=== PATIENT | male | born 1990 | race Two or more races ===

== ENCOUNTER 2017-07-16 19:19 | Emergency (ER) | payer MEDICAID, OTHER ==
[~2017-07-16] VITALS: Ht 172.7 cm; Wt 70.3 kg
[2017-07-16 20:15] LABS: Urine Bacteria NONE SEEN /hpf (None Seen); Urine Blood Negative /uL (Negative); Urine Specific Gravity 1.003 (1.001-1.035); Urine WBC 1 /hpf (0 - 3)
[2017-07-16 20:17] LABS: Basophils # (auto) 0 uL; Basophils % (auto) 0.2 % (0.0-2.0); Eosinophils # (auto) 0 uL; Hemoglobin 14.7 g/dL (13.5-17.5); Lymphocytes % (auto) 6.8 % (10.0-50.0); Mean Corpuscular Hemoglobin 31.1 pg (28.0-32.0); Mean Corpuscular Hgb Conc. 34.2 g/dL (32.0-36.0); Mean Corpuscular Volume 91.1 fL (80.0-100.0); Monocytes # (auto) 1.4 uL; Monocytes % (auto) 9.7 % (0.0-12.0); Neutrophils % (auto) 83.3 % (37.0-80.0); Platelet Count (auto) 290 10^3/uL (140-450); Red Blood Cells 4.72 10^6/uL (4.5-5.90); Red Cell Distribution Width 12.9 % (11.8-14.3); White Blood Cell 14.4 10^3/uL (4.4-10.8)
[2017-07-16 20:36] LABS: Albumin 4.3 g/dL (3.4-5.0); BUN/Creatinine Ratio 8.8; Bilirubin, Total 0.7 mg/dL (0.2-1.0); Calcium 9.6 mg/dL (8.5-10.1); Potassium 3.9 mmol/L (3.5-5.1); Total Protein 9.2 g/dL (6.4-8.2)
[2017-07-16 21:10] VITALS: BP 120/80
[2017-07-16] MEDS ORDERED: cefTRIAXone SOD 1,000 MG VL IM ONE (21:15)
[2017-07-16] MEDS ORDERED: AZITHROMYCIN 250 MG TAB PO ONE (21:15)
== END 2017-07-16 21:31 | disposition home or self-care (01) ==
LOC: EDBD 19:19 → ER 19:19
DX: A54.9 Gonococcal infection, unspecified (principal); A74.9 Chlamydial infection, unspecified
CPT/HCPCS: 36415; 80053; 81001; 85025; 96372; 99284; J0696